=== PATIENT | female | born 1985 | race Hispanic/Latino ===

== ENCOUNTER 2018-06-17 01:48 | Emergency (ER) | payer MEDICARE ==
--- OUTSIDE RECORDS SUMMARY | 2018-06-17 01:50 | XMS REPORT ---
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 Problem Acute on chronic systolic (congestive) heart failure I50.23 Active Problem Glomerular disease in systemic lupus erythematosus M32.14 Active Problem Chronic kidney disease, stage 4 (severe) N18.4 Active Problem Vitamin D deficiency, unspecified E55.9 Active Problem Diarrhea, unspecified R19.7 Active Problem Nonrheumatic mitral (valve) insufficiency I34.0 Active Problem Anemia in chronic kidney disease D63.1 Active Problem Acidosis E87.2 Active Problem Cough R05 Active Problem Essential (primary) hypertension I10 Active Medications Medication Code System Code Instructions Start Date End Date Status Dosage Nifedical XL [facility] 15873296688 60 MG Orally every morning December 08, 2016 Active 1 tablet Results No Known Results Summary Purpose [employer] Submission
--- OUTSIDE RECORDS SUMMARY | 2018-06-17 01:50 | XMS REPORT | Continuity of Care Document ---
Author Author 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 Active Problem 01/06/2018 [facility] Acute on chronic systolic heart failure Active Problem 01/06/2018 [facility] Glomerular disease in systemic lupus erythematosus Active Problem 01/06/2018 [facility] Chronic kidney disease, stage 4 Active Problem 01/06/2018 [facility] Vitamin D deficiency, unspecified Active Problem 01/06/2018 [facility] Diarrhea, unspecified Active Problem 01/06/2018 [facility] Nonrheumatic mitral insufficiency Active Problem 01/06/2018 [facility] Anemia in chronic kidney disease Active Problem 01/06/2018 [facility] Acidosis Active Problem 01/06/2018 [facility] Cough Active Problem 01/06/2018 [facility] Essential hypertension Active Problem 01/06/2018 [facility] Medications Medication Details Route Status Patient Instructions Ordering Provider Order Date Source Carvedilol as directed Orally Active 25 MG Orally twice a day (bid) [facility] 05/17/2017 [facility] Norvasc 1 tablet Orally Active 5 MG Orally Once a day [facility] 05/17/2017 [facility] Norvasc 1 tablet Orally Active 10 MG Orally once every night [facility] 02/04/2017 [facility] Nifedical XL 1 tablet Orally Active 60 MG Orally every morning [facility] 12/08/2016 [facility] HydrALAZINE HCl 1 tablet with food Orally Active 25 MG Orally Three times a day [facility] 11/18/2016 [facility] Losartan Potassium 1 tablet Orally Active 100 MG Orally Once a day [facility] 11/05/2016 [facility] Falguni-Marquis 1 tablet Orally Active - Orally Once a day [facility] 11/05/2016 [facility] Atenolol 1 tablet Orally Active 100 MG Orally Once a day [facility] 09/08/2016 [facility] PredniSONE 1 tablet Orally Active 5 MG Orally Once a day [facility] Carvedilol 1 tablet Orally Active 12.5 MG Orally twice a day (bid) [facility] CellCept 3 tablets Orally Active 500 MG Orally Twice a day [facility] Calcitriol 1 capsule Orally Active 0.25 MCG Orally every other day [facility] Plaquenil 1 tablet with food or milk Orally Active 200 MG Orally Once a day [facility] Allergies, Adverse Reactions, Alerts Substance Category Reaction Severity Reaction type Status Date Reported Comments Source N.K.D.A. Adverse Reaction Info Not Available Adverse Reaction Active 11/18/2016 [facility] Immunizations Immunization Date Given Site Status Last Updated Comments Source Results Order Name Results Value Reference Range Date Interpretation Comments Source Vital Signs Vital Sign Value Date Comments Source Weight 137 11/18/2016 [facility] Systolic (mm Hg) 144 11/18/2016 [facility] Respitory Rate 0 11/18/2016 [facility] Heart Rate 80 11/18/2016 [facility] Temperature Oral (F) 0 F 11/18/2016 [facility] Diastolic (mm Hg) 80 11/18/2016 [facility] Encounters Location Location Details Encounter Type Encounter Number Reason For Visit Attending Provider ADM Date DC Date Status Source Procedures Procedure Code Date Perfomer Comments Source
--- OUTSIDE RECORDS SUMMARY | 2018-06-17 01:50 | XMS REPORT ---
Author Author Lenard Garcia Organization [employer] Address Unknown Phone Unavailable Care Team Providers Care Salesperson Books Name Role Phone Lenard Garcia Unavailable Allergies, Adverse Reactions, Alerts Substance Reaction Event Type N.K.D.A. 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 Problem Acute on chronic systolic (congestive) heart failure I50.23 Active Problem Cough R05 Active Problem Chronic kidney disease, stage 4 (severe) N18.4 Active Assessment Essential (primary) hypertension I10 Active Assessment Chronic kidney disease, stage 4 (severe) N18.4 Active Assessment Nonrheumatic mitral (valve) insufficiency I34.0 Active Assessment Acute on chronic systolic (congestive) heart failure I50.23 Active Problem Anemia in chronic kidney disease D63.1 Active Medications Medication Code System Code Instructions Start Date End Date Status Dosage PredniSONE [facility] [address]-41 5 MG Orally Once a day Active 1 tablet Carvedilol [facility] [address]-99 12.5 MG Orally twice a day (bid) Active 1 tablet Losartan Potassium [facility] [address]-34 100 MG Orally Once a day November 05, 2016 Active 1 tablet CellCept [facility] [address]-61 500 MG Orally Twice a day Active 3 tablets Calcitriol [facility] [address]-97 0.25 MCG Orally every other day Active 1 capsule Atenolol [facility] [address]-31 100 MG Orally Once a day September 08, 2016 Active 1 tablet HydrALAZINE HCl [facility] [address]-72 25 MG Orally Three times a day November 18, 2016 Active 1 tablet with food Falguni-Marquis [facility] [address]-64 - Orally Once a day November 05, 2016 Active 1 tablet Plaquenil [facility] [address]-08 200 MG Orally Once a day Active 1 tablet with food or milk Vital Signs Date/Time: November 18, 2016 BMI 22.94 Index Weight 137 lbs Blood Pressure Systolic 144 mm Hg Respiratory Rate 0 /min Cardiac Monitoring Heart Rate 80 /min Temperature 0 F Blood Pressure Diastolic 80 mm Hg Results No Known Results Summary Purpose [employer] Submission
--- OUTSIDE RECORDS SUMMARY | 2018-06-17 01:50 | XMS REPORT | Clinical Summary ---
Author Author [facility] Organization [facility] Address Unknown Phone Unavailable Care Team Providers Care Powder Coater Name Role Phone Jimmie Cantu MD PCP Allergies No Known Allergies Medications End Date Status Medication Sig Dispensed Refills Start Date Active hydroxychloroquine Take 200 mg 0 (PLAQUENIL) 200 mg tablet by mouth daily. Active predniSONE (DELTASONE) 5 Take 5 mg by 0 mg tablet mouth daily. Active atenolol (TENORMIN) 50 MG Take 100 mg 0 tablet by mouth daily. Active Problems Problem Noted Date CKD (chronic kidney disease) stage V requiring chronic dialysis 12/20/2016 Lupus (systemic lupus erythematosus) 12/17/2016 Encounters Care Team Description Date Type Specialty Zaria Casas RN mrb outcome 09/23/2017 Documentation Transplant Michell Santana MRB Packet 09/22/17 (MRB packet 09/22/17 scanned in media. ) 09/20/2017 Documentation Transplant Zaria Casas RN mrb packet 09/20/2017 Documentation Transplant Michell Santana Urology clearance (Urology clearance 08/17/17 scanned in media. ) 08/31/2017 Documentation Transplant Asmita Colunga LMSW 08/18/2017 Documentation Transplant Asmita Colunga LMSW 08/15/2017 Documentation Transplant Michell Santana Urology consult (13:16pm sp w/Stefan in Dr. Rj mckeon, pt schedule 08/17/17 @ 2:15pm. sp w/pt & confirmed appt on 08/17/17. Emailed itinerary to pt & scanned in media. ) 08/09/2017 Documentation Transplant Asmita Colunga LMSW 08/05/2017 Documentation Transplant Derik Rodriguez RN ESRD (end stage renal disease) (Primary Dx) 07/18/2017 Orders Only Transplant Casas, Zaria, RN mrb presentation 07/18/2017 Documentation Transplant Michell Santana Cardio clearance (cardio clearance 05/30/17 and echo 05/30/17 scanned in media. ) 07/12/2017 Documentation Transplant after 06/16/2017 Family History Medical History Relation Name Comments No Known Problems Brother Cancer Father No Known Problems Mother No Known Problems Sister Relation Name Status Comments Brother Alive Father Alive Mother Alive Sister Alive Social History Date Tobacco Use Types Packs/Day Years Used Never Smoker Alcohol Use Drinks/Week oz/Week Comments Yes socially Sex Assigned at Date Recorded Not on file Industry Job Start Date Occupation Not on file Not on file Not on file Travel End Travel History Travel Start No recent travel history available. Last Filed Vital Signs Not on file Plan of Treatment Health Maintenance Due Date Last Done Comments INFLUENZA VACCINE 01/18/2018 CERVICAL CANCER SCREENING 04/20/2020 04/20/2017 Results Not on fileafter 06/16/2017 Insurance Payer Benefit Subscriber ID Type Phone Address Plan / Group MEDICARE MEDICARE xxxxxxxxxx Medicare [place], [place] PART A AND B Advance Directives Patient has advance care planning documents on file. For more information, leyda kaye contact: Tomy García [address] [place] [address]
--- OUTSIDE RECORDS SUMMARY | 2018-06-17 01:51 | XMS REPORT ---
Author Author Haydee Ingram Organization [employer] Address Unknown Phone Unavailable Care Team Providers Care Assurance Associate Name Role Phone Haydee Ingram CP Unavailable Allergies No Known Allergies Problems [...] Instructions Start Date End Date Status Dosage Carvedilol [facility] 88422344768 25 MG Orally twice a day (bid) May 17, 2017 Active as directed Norvasc [facility] 01861264110 5 MG Orally Once a day May 17, 2017 Active 1 tablet Results No Known Results Summary Purpose [employer]ClinicalWorks Submission
--- OUTSIDE RECORDS SUMMARY | 2018-06-17 01:51 | XMS REPORT ---
Author Author Luis Alberto Sarkar Organization [employer] Address Unknown Phone Unavailable Care Team Providers Care Casting Machine Operator Helper Name Role Phone Luis Alberto Sarkar CP [...] Instructions Start Date End Date [facility] D[facility] MG Orally once every night Feb 04, 2017 Active 1 tablet Results No Known Results Summary Purpose [employer]ClinicalWorks Submission
--- OUTSIDE RECORDS SUMMARY | 2018-06-17 01:51 | XMS REPORT ---
Author Author Luis Alberto Sarkar Organization [employer] Address Unknown Phone Unavailable Care Team Providers Care Coke Still Cleaner Name Role Phone Luis Alberto Sarkar CP [...] Problem Essential (primary) hypertension I10 Active Medications No Known Medications Results No Known Results Summary Purpose [employer] Submission
--- OUTSIDE RECORDS SUMMARY | 2018-06-17 01:51 | XMS REPORT ---
Author Author [facility] Address Unknown Phone Unavailable Care Team Providers Care Operators Teacher Name Role Phone Unavailable Unavailable Payers Payer Name Policy Type Policy Number Effective Date Expiration Date Problems This patient has no known problems. Allergies, Adverse Reactions, Alerts Allergy Name Allergy Type Status Severity Reaction(s) Onset Date Inactive Date Treating Clinician Comments No Known Allergies DA Active U 2011-05-20 00:00:00 Medications This patient has no known medications.
== END 2018-06-17 02:21 | disposition left against medical advice (07) ==
LOC: ER 01:48
DX: R10.9 Unspecified abdominal pain (principal)